=== PATIENT | female | born 1960 | race Caucasian/White ===

== ENCOUNTER 2022-11-05 17:47 | Inpatient (IN) | payer OTHER ==
[2022-11-05] MEDS ORDERED: IPRATROPIUM 0.5 MG/2.5 ML NEBU INHALATION STA (18:27)
[2022-11-05] MEDS ORDERED: ALBUTEROL NEBULIZED 2.5 MG/3 ML INHALATION STA (18:27)
[2022-11-05] MEDS ORDERED: DEXAMETHASONE SOD PHOSPHATE 10 MG/ML 1 ML VIAL IV STA (18:27)
--- NOTE | 2022-11-05 18:36 | ED ---
General Adult HPI - General Chief complaint: Shortness of Breath Stated complaint: sob, cough, stomach pain Time Seen by Provider: 11/05/22 17:53 Source: patient Mode of arrival: ambulatory Limitations: no limitations - History of Present Illness Initial comments: Dictation was produced using [employer] dictation software. please excuse any grammatical, word or spelling errors. Chief Complaint: 62-year-old female past nuchal history of COPD presents to the emergency room for shortness of breath History of Present Illness: 62-year-old female presents emergency department for shortness of breath she has past medical history of COPD. Patient has undergone respiratory failure causing cardiac arrest in the past. Patient with an urgent care yesterday and was given a Solu-Medrol shot and prescription for refills on her albuterol. She states that she called around town wasn't able to get a refill. Patient states is typical of her usual COPD. Denies any chest pain. Denies any fever. She has a cough. Cough is nonproductive. The ROS documented in this emergency department record has been reviewed and confirmed by me. Those systems with pertinent positive or negative responses have been documented in the HPI. All other systems are other negative and/or noncontributory. PHYSICAL EXAM: General Impression: Alert and oriented x3, not in acute distress HEENT: Normocephalic atraumatic, extra-ocular movements intact, pupils equal and reactive to light bilaterally, mucous membranes moist. Cardiovascular: Heart regular rate and rhythm Chest: Able to complete full sentences, diffuse wheezing bilaterally Abdomen: abdomen soft, non-tender, non-distended, no organomegaly Musculoskeletal: Pulses present and equal in all extremities, no peripheral edema Motor: no focal deficits noted Neurological: CN II-XII grossly intact, no focal motor or sensory deficits noted Skin: Intact with no visualized rashes Psych: Normal affect and mood ED course: 62-year-old male presents emergency department for shortness of breath. Past medical history of COPD. Nursing notes and chart review was performed Vital signs upon arrival are within acceptable limits. My EKG interpretation: Ventricular rate 86, sinus rhythm,. 159, QRS 97, QTC 42. No MN prolongation, no QTC prolongation, no ST or T-wave changes noted. Overall, this EKG is unremarkable Laboratory evaluation obtained. CBC unremarkable. Venous blood gases negative. Metabolic panel is negative. Cardiac labs are negative. Chest x-ray shows interstitial pattern. Patient reevaluated bedside states that she is still having trouble breathing. Considering patient's history of respiratory arrest she will be admitted to observation for further care and pulmonology consultation. Case discussed with Dr. Otto. Was pt. sent in by a medical professional or institution (, [facility], MARGARINE CHURN OPERATOR, urgent care, hospital, or half-way...) When possible be specific @ -No Did you speak to anyone other than the patient for history (EMS, parent, family, police, friend...)? What history was obtained from this source @ -No Did you review nursing and triage notes (agree or disagree)? Why? @ -I reviewed and agree with nursing and triage notes Were old charts reviewed (outside hosp., previous admission, EMS record, old EKG, old radiological studies, urgent care reports/EKG's, half-way records)? Report findings @ -No old charts were reviewed Differential Diagnosis (chest pain, altered mental status, abdominal pain women, abdominal pain men, vaginal bleeding, weakness, fever, dyspnea, syncope, headache, dizziness, GI bleed, back pain, seizure, CVA, palpatations, mental health)? @ -not applicable EKG interpreted by me (3pts min.). @ -As above X-rays interpreted by me (1pt min.). @ -As above CT interpreted by me (1pt min.). @ -None done U/S interpreted by me (1pt. min.). @ -None done What testing was considered but not performed or refused? (CT, X-rays, U/S, labs)? Why? @ -CT was considered but no indication What meds were considered but not given or refused? Why? @ -None Did you discuss the management of the patient with other professionals (professionals i.e. [facility] Elliott, MARGARINE CHURN OPERATOR, lab, RT, psych nurse, social service assistant, roll coverer, teacher, risk control officer, case briefer)? Give summary @ -See above Was smoking cessation discussed for >3mins.? @ -No Was critical care preformed (if so, how long)? @ -No Were there social determinants of health that impacted care today? How? (Homelessness, low income, unemployed, alcoholism, drug addiction, transportation, low edu. Level, literacy, decrease access to med. care, fpc, rehab)? @ -No establish care locally given patient moved recently from out of town Was there de-escalation of care discussed even if they declined (Discuss DNR or withdrawal of care, Hospice)? DNR status @ -No What co-morbidities impacted this encounter? (DM, HTN, Smoking, COPD, CAD, Cancer, CVA, ARF, Chemo, Hep., AIDS, mental health diagnosis, sleep apnea, morbid obesity)? @ -None Was patient admitted / discharged? Hospital course, mention meds given and route, prescriptions, significant lab abnormalities, going to OR and other pertinent info. @ -See above Undiagnosed new problem with uncertain prognosis? @ -No Drug Therapy requiring intensive monitoring for toxicity (Heparin, Nitro, Insulin, Cardizem)? @ -No Were any procedures done? @ -No Diagnosis/symptom? @ -COPD exacerbation Acute, or Chronic, or Acute on Chronic? @ -Acute Uncomplicated (without systemic symptoms) or Complicated (systemic symptoms)? @ -default Side effects of treatment? @ -No Exacerbation, Progression, or Severe Exacerbation? @ -Exacerbation Poses a threat to life or bodily function? How? (Chest pain, [place], [place], pneumonia, PE, COPD, DKA, ARF, appy, cholecystitis, CVA, Diverticulitis, Homicidal, Suicidal, threat to staff... and all critical care pts) @ -Gas - Related Data Home Medications Medication Instructions Recorded Confirmed Albuterol Sulfate [Ventolin HFA] 2 puff INHALATION RT-QID PRN 11/05/22 11/05/22 Apixaban [Eliquis] 5 mg PO BID 11/05/22 11/05/22 Budesonide [Pulmicort] 0.5 mg INHALATION RT-BID 11/05/22 11/05/22 Doxycycline [Vibramycin] 100 mg PO BID 11/05/22 11/05/22 HYDROcodone/APAP 10-325MG [[place] 1 tab PO BID PRN 11/05/22 11/05/22 10-325] Ipratropium-Albuterol Nebulize 3 ml INHALATION RT-QID 11/05/22 11/05/22 [Duoneb 0.5 mg-3 mg/3 ml Soln] Ondansetron Odt [Zofran Odt] 8 mg PO Q8HR PRN 11/05/22 11/05/22 Pantoprazole [Protonix] 40 mg PO DAILY 11/05/22 11/05/22 predniSONE 50 mg PO DAILY 11/05/22 11/05/22 Allergies Allergy/AdvReac Type Severity Reaction Status Date / Time ciprofloxacin [From Cipro] Allergy Rash/Hives Verified 11/05/22 20:54 Iodinated Contrast Media Allergy Anaphylaxis Verified 11/05/22 20:54 Penicillins Allergy Unknown Verified 11/05/22 20:54 Childhood prochlorperazine AdvReac Confusion Verified 11/05/22 20:54 [From Compazine] Review of Systems ROS Statement: Those systems with pertinent positive or pertinent negative responses have been documented in the HPI. ROS Other: All systems not noted in ROS Statement are negative. Past Medical History Past Medical History: COPD, Hypertension, Myocardial Infarction (ME), R espiratory Disorder History of Any Multi-Drug Resistant Organisms: None Reported Past Surgical History: Adenoidectomy, Appendectomy, Cholecystectomy, Hernia Repair, Tonsillectomy Additional Past Surgical History / Comment(s): colonoscopy, perferated colon in 2010 pt was in coma for 2.5 months. 15 abd surgeries Past Psychological History: No Psychological Hx Reported Smoking Status: Current some day smoker Past Alcohol Use History: None Reported Past Drug Use History: None Reported General Exam Limitations: no limitations Course Vital Signs 11/05/22 11/05/22 11/05/22 17:49 18:12 18:55 Temperature 97.5 F L Pulse Rate 105 H 90 80 Respiratory 20 24 Rate Blood Pressure 164/101 152/96 O2 Sat by Pulse 97 97 Oximetry 11/05/22 11/05/22 11/05/22 19:10 19:37 20:00 Temperature Pulse Rate 78 90 94 Respiratory 22 Rate Blood Pressure 124/89 O2 Sat by Pulse 95 Oximetry Medical Decision Making - Lab Data Result diagrams: 11/05/22 18:45 11/05/22 18:45 Lab Results 11/05/22 11/05/22 11/05/22 Range/Units 18:45 18:45 18:45 WBC 11.1 H (3.8-10.6) k/uL RBC 4.21 (3.80-5.40) m/uL Hgb 13.9 (11.4-16.0) gm/dL Hct 41.2 (34.0-46.0) % MCV 97.7 (80.0-100.0) fL MCH 33.1 (25.0-35.0) pg MCHC 33.9 (31.0-37.0) g/dL RDW 13.8 (11.5-15.5) % Plt Count 209 (150-450) k/uL MPV 7.9 Neutrophils % 76 % Lymphocytes % 16 % Monocytes % 5 % Eosinophils % 0 % Basophils % 1 % Neutrophils # 8.5 H (1.3-7.7) k/uL Lymphocytes # 1.8 (1.0-4.8) k/uL Monocytes # 0.6 (0-1.0) k/uL Eosinophils # 0.0 (0-0.7) k/uL Basophils # 0.1 (0-0.2) k/uL VBG pH 7.36 (7.31-7.41) VBG pCO2 46 (37-51) mmHg VBG HCO3 25 (24-28) mmol/L Sodium 138 (137-145) mmol/L Potassium 3.9 (3.5-5.1) mmol/L Chloride 106 (98-107) mmol/L Carbon Dioxide 27 (22-30) mmol/L Anion Gap 5 mmol/L BUN 14 (7-17) mg/dL Creatinine 0.79 (0.52-1.04) mg/dL Est GFR (CKD-EPI)AfAm >90 (>60 ml/min/1.73 sqM) Est GFR (CKD-EPI)NonAf 81 (>60 ml/min/1.73 sqM) Glucose 85 (74-99) mg/dL Calcium 9.4 (8.4-10.2) mg/dL Troponin I (0.000-0.034) ng/mL NT-Pro-B Natriuret Pep pg/mL 11/05/22 11/05/22 Range/Units 18:45 18:45 WBC (3.8-10.6) k/uL RBC (3.80-5.40) m/uL Hgb (11.4-16.0) gm/dL Hct (34.0-46.0) % MCV (80.0-100.0) fL MCH (25.0-35.0) pg MCHC (31.0-37.0) g/dL RDW (11.5-15.5) % Plt Count (150-450) k/uL MPV Neutrophils % % Lymphocytes % % Monocytes % % Eosinophils % % Basophils % % Neutrophils # (1.3-7.7) k/uL Lymphocytes # (1.0-4.8) k/uL Monocytes # (0-1.0) k/uL Eosinophils # (0-0.7) k/uL Basophils # (0-0.2) k/uL VBG pH (7.31-7.41) VBG pCO2 (37-51) mmHg VBG HCO3 (24-28) mmol/L Sodium (137-145) mmol/L Potassium (3.5-5.1) mmol/L Chloride (98-107) mmol/L Carbon Dioxide (22-30) mmol/L Anion Gap mmol/L BUN (7-17) mg/dL Creatinine (0.52-1.04) mg/dL Est GFR (CKD-EPI)AfAm (>60 ml/min/1.73 sqM) Est GFR (CKD-EPI)NonAf (>60 ml/min/1.73 sqM) Glucose (74-99) mg/dL Calcium (8.4-10.2) mg/dL Troponin I <0.012 (0.000-0.034) ng/mL NT-Pro-B Natriuret Pep 285 pg/mL Disposition Clinical Impression: COPD exacerbation Disposition: ADMITTED IP TO THIS HOSP Condition: Fair Referrals: Nonstaff,Physician [Primary Care Provider] - 1-2 days Decision Time: 21:00
[2022-11-05 20:01] LABS: Basophils # (A) 0.1 k/uL (0-0.2); Basophils % (A) 1 %; Eosinophils % (A) 0 %; HCT 41.2 % (34.0-46.0); HGB 13.9 gm/dL (11.4-16.0); Lymphocytes # (A) 1.8 k/uL (1.0-4.8); Lymphocytes % (A) 16 %; MCH 33.1 pg (25.0-35.0); MCHC 33.9 g/dL (31.0-37.0); MCV 97.7 fL (80.0-100.0); Mean Platelet Volume 7.9; Monocytes # (A) 0.6 k/uL (0-1.0); Monocytes % (A) 5 %; Neutrophils # (A) 8.5 k/uL (1.3-7.7); Neutrophils % (A) 76 %; Platelet Count 209 k/uL (150-450); RBC 4.21 m/uL (3.80-5.40); RDW 13.8 % (11.5-15.5); VBG PH 7.36 (7.31-7.41); WBC 11.1 k/uL (3.8-10.6)
[2022-11-05] MEDS ORDERED: HYDROcodone/APAP 10-325MG 1 EACH TAB PO ONE (20:13)
[2022-11-05] MEDS ORDERED: MORPHINE SULFATE 4 MG/ML SYRINGE IV STA (20:14)
[2022-11-05 20:15] LABS: African American GFR (CKD) >90 (>60 ml/min/1.73 sqM); Anion Gap 5 mmol/L; Blood Urea Nitrogen 14 mg/dL (7-17); Calcium 9.4 mg/dL (8.4-10.2); Carbon Dioxide 27 mmol/L (22-30); Chloride 106 mmol/L (98-107); Glucose 85 mg/dL (74-99); Non-African American GFR(CKD) 81 (>60 ml/min/1.73 sqM); Potassium 3.9 mmol/L (3.5-5.1); Sodium 138 mmol/L (137-145)
--- NOTE | 2022-11-05 20:40 | XR ---
EXAMINATION: XR chest 2V: 11/05/2022 8:09 PM CLINICAL INDICATION: copd exacerbation TECHNIQUE: Departmental protocol COMPARISON: None FINDINGS: There is a fine reticular pattern of increased attenuation which symmetrically mildly silhouettes the pulmonary vasculature. This can correlate with a clinical diagnosis of mild interstitial pulmonary e erin. The radiologic differential also includes chronic interstitial lung and infection. The pleural spaces are negative. The cardiac silhouette is not enlarged. The remainder of the mediastinal silhouette is unremarkable. The skeletal structures and soft tissues are negative for acute findings. IMPRESSION: Mild interstitial pattern.
[2022-11-05] MEDS ORDERED: NALOXONE 0.4 MG/ML 1 ML VIAL IVP PRN (20:55)
[2022-11-05] MEDS ORDERED: ALPRAZolam 0.5 MG TAB PO PRN (21:42)
[2022-11-05] MEDS ORDERED: ONDANSETRON ODT 8 MG TAB.RAPDIS PO PRN (21:42)
[2022-11-05] MEDS ORDERED: ALBUTEROL NEBULIZED 2.5 MG/3 ML INHALATION PRN (21:42)
[2022-11-05] MEDS: APIXABAN 5 MG TAB PO SCH (22:43)
[2022-11-05] MEDS: HYDROcodone/APAP 10-325MG 1 EACH TAB PO PRN (22:43)
[2022-11-06] MEDS: PANTOPRAZOLE 40 MG TABLET PO SCH (06:26)
[2022-11-06] MEDS ORDERED: BUDESONIDE 0.5 MG/2 ML NEBU INHALATION SCH (08:00)
[2022-11-06] MEDS ORDERED: IPRATROPIUM-ALBUTEROL 3 ML NEB INHALATION SCH (08:00)
[2022-11-06] MEDS: APIXABAN 5 MG TAB PO SCH ×2 (08:26→21:13)
[2022-11-06] MEDS: DOXYCYCLINE 100 MG CAP PO SCH ×2 (08:26→21:13)
[2022-11-06] MEDS: HYDROcodone/APAP 10-325MG 1 EACH TAB PO PRN ×2 (08:35→18:07)
[2022-11-06] MEDS ORDERED: predniSONE 20 MG TAB PO SCH (09:00)
[2022-11-06] MEDS: IPRATROPIUM-ALBUTEROL 3 ML NEB INHALATION SCH ×4 (11:38→23:55)
[2022-11-06] MEDS: guaiFENesin 600 MG TABLET.ER PO SCH ×3 (12:18→21:13)
[2022-11-06] MEDS: methylPREDNISolone SOD SUCCI 125 MG/2 ML VIAL IV SCH ×2 (12:18→18:08)
--- NOTE | 2022-11-06 14:41 | P.CNPUL ---
History of Present Illness Consult date: 11/06/22 Requesting physician: Hernandez Otto Reason for consult: dyspnea, cough, COPD, hypoxemia Chief complaint: Shortness of breath. History of present illness: Pulmonary consult dated 11/06/2022. 62-year-old female was seen in the emergency department on November 05, complaining of shortness of breath, and cough. The patient apparently has history of COPD, based on many many years of tobacco use. Also, in the past, because of her respiratory issues, she has had a cardiac arrest twice, most rece nt time, and January 2022. Currently, she is on 2 L. No IV fluids. She's been smoking for 50 years. She does continue to smoke. 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 She does not see anybody currently. She was admitted with a diagnosis of COPD exacerbation, after seeing the ER physician. White count 11.1, with a normal hemoglobin, hematocrit, and platelet count. Venous blood gases showed a pCO2 of 46, and a pH is 7.36. Chemistry was completely normal including troponin, and N-terminal proBNP. The chest x-ray in my opinion was normal. The radiologist suggested a mild interstitial pattern Review of Systems REVIEW OF SYSTEMS: CONSTITUTIONAL: [Negative.] NEUROLOGIC: [ Negative.] HEENT: [ Negative.] CARDIAC: [Negative.] PULMONARY: Shortness of breath, cough, chest congestion. GI: [Negative.] : [Negative.] RHEUMATOLOGIC: [ Negative.] IMMUNOLOGIC: [ Negative.] ENDOCRINE: [Negative. ] DERMATOLOGIC: [Negative.] Past Medical History Past Medical History: COPD, Hypertension, Respiratory Disorder Additional Past Medical History / Comment(s): cardiac arrest january 2022, "stopped breathing" and on a ventilator in 2020 History of Any Multi-Drug Resistant Organisms: MRSA Date of last positivie culture/infection: 2010 MDRO Source:: abdomen Past Surgical History: Adenoidectomy, Appendectomy, Cholecystectomy, Tonsillectomy Additional Past Surgical History / Comment(s): colonoscopy, perferated colon in 2010 pt was in coma for 2.5 months. 15 abd surgeries Past Psychological History: No Psychological Hx Reported Smoking Status: Former smoker Past Alcohol Use History: None Reported Past Drug Use History: None Reported Medications and Allergies Home Medications Medication Instructions Recorded Confirmed Type ALPRAZolam [Xanax] 0.5 mg PO TID PRN 11/05/22 11/05/22 History Albuterol Sulfate [Ventolin HFA] 2 puff INHALATION RT-QID PRN 11/05/22 11/05/22 History Apixaban [Eliquis] 5 mg PO BID 11/05/22 11/05/22 History Budesonide [Pulmicort] 0.5 mg INHALATION RT-BID 11/05/22 11/05/22 History Doxycycline [Vibramycin] 100 mg PO BID 11/05/22 11/05/22 History HYDROcodone/APAP 10-325MG [[place] 1 tab PO BID PRN 11/05/22 11/05/22 History 10-325] Ipratropium-Albuterol Nebulize 3 ml INHALATION RT-QID 11/05/22 11/05/22 History [Duoneb 0.5 mg-3 mg/3 ml Soln] Ondansetron Odt [Zofran Odt] 8 mg PO Q8HR PRN 11/05/22 11/05/22 History Pantoprazole [Protonix] 40 mg PO DAILY 11/05/22 11/05/22 History predniSONE 50 mg PO DAILY 11/05/22 11/05/22 History Allergies Allergy/AdvReac Type Severity Reaction Status Date / Time ampicillin Allergy Severe Rash/Hives Verified 11/05/22 21:19 (in mouth), throat swelling Iodinated Contrast Media Allergy Severe Anaphylaxis Verified 11/05/22 21:19 Penicillins Allergy Severe Rash/Hives Verified 11/05/22 21:19 ciprofloxacin [From Cipro] Allergy Rash/Hives Verified 11/05/22 21:19 metoclopramide [From Reglan] AdvReac Confusion, Verified 11/05/22 21:19 Agitation, muscle pain/stiffness prochlorperazine AdvReac Confusion, Verified 11/05/22 21:19 [From Compazine] Agitation, muscle pain/stiffness Physical Exam Osteopathic Statement: *. No significant issues noted on an osteopathic structural exam other than those noted in the History and Physical/Consult. Vitals: Vital Signs Temp Pulse Pulse Resp BP BP Pulse Ox 11/06/22 14:30 97.9 F 84 18 120/73 95 11/06/22 11:50 76 11/06/22 11:39 74 11/06/22 07:43 74 11/06/22 07:25 72 11/06/22 07:24 95 11/06/22 07:00 97.6 F 74 18 112/71 97 11/06/22 05:10 78 11/06/22 05:03 74 11/06/22 01:17 97.6 F 74 16 104/65 95 11/05/22 22:09 98.0 F 89 18 142/77 95 11/05/22 21:37 79 18 117/68 95 11/05/22 20:00 94 22 124/89 95 11/05/22 19:37 90 11/05/22 19:10 78 11/05/22 18:55 80 11/05/22 18:12 90 24 152/96 97 11/05/22 17:49 97.5 F L 105 H 20 164/101 97 Intake and Output 11/05/22 11/06/22 11/06/22 22:59 06:59 14:59 Intake Total 354 Balance 354 Intake: Oral 354 Other: Voiding Method Toilet # Voids 3 Weight 68.039 kg No acute distress, oriented 3. No respiratory distress. No use of accessory muscles or conversational dyspnea. The patient's on 2 L of oxygen. HEENT examination is grossly unremarkable. Neck supple. Full range of motion. No adenopathy thyromegaly or neck vein distention. Cardiovascular examination reveals regular rhythm rate. S1-S2 normal. No S3 or S4. No discernible murmur noted. Heart rate 84 bpm. Lungs reveal coarse bilateral inspiratory and expiratory rhonchi, and expiratory wheezes, and bilateral crackles. Breath sounds equal bilaterally. Abdomen soft bowel sounds are heard. No masses or tenderness. Extremities are intact. No cyanosis clubbing or edema. Skin is without rash or lesion. Neurologic examination is brief but nonfocal. Results - Laboratory Findings CBC and BMP: 11/05/22 18:45 11/05/22 18:45 Abnormal lab findings: Abnormal Labs 11/05/22 18:45 WBC 11.1 H Neutrophils # 8.5 H - Diagnostic Findings Chest x-ray: image reviewed Assessment and Plan Assessment: Acute exacerbation of COPD, without obvious infection. 52 years of tobacco use, and ongoing tobacco use. History of hypertension. History of myocardial infarction. History of cardiac arrest 2. Previous history of perforated colon, 2010. Previous history of multiple abdominal procedures. Plan: Plan dated 11/06/2022. The patient is on updrafts with albuterol sulfate and ipratropium bromide, Solu- Medrol, and both formoterol. The desonide. Patient is also on doxycycline. The patient appears not to be in much distress. A pro-calcitonin level was ordered. The patient may not need antibiotics. Additional recommendations and suggestions are forthcoming. We will continue to follow and make recommendations along the way. Prognosis is certainly guarded, given her 2 previous episodes of cardiac arrest. Time with Patient: Greater than 30
[2022-11-06] MEDS: NICOTINE 7MG/24HR PATCH TRANSDERM SCH (18:08)
--- NOTE | 2022-11-06 18:34 | P.HPIM ---
History of Present Illness H&P Date: 11/06/22 Chief Complaint: Short of breath This is a pleasant 62-year-old patient with currently no family doctor. Has a known history of COPD, hypertension, and a perforated bowel for by multiple surgeries, respiratory arrest was ventilator on January 2022. Patient has been chronically short of breath. Recently is progressed to get worse. Now bringing up some sputum. Cough. No fever no chills. Wheezing. Decreased appetite and weight loss tired rundown. Review of systems: GEN.: Tired weight loss decreased appetite EYES: None HEENT: None NECK: None RESPIRATORY: As above CARDIOVASCULAR: None GASTROINTESTINAL: None GENITOURINARY: None MUSCULOSKELETAL: None LYMPHATICS: None HEMATOLOGICAL: None PSYCHIATRY: None NEUROLOGICAL: None Past medical history to include: COPD, hypertension, respiratory arrest with intubation January 2022, multiple bowel surgeries in 2010 following perforated: Social history: . Does smoke a few cigarettes here and there. Pelvic about less than half a pack a day for 50 years stopped about 10 years ago. Physical examination: VITAL SIGNS: 97.5, 105, 20, 152/96, 97% room air upon presentation GENERAL: BMI 22.8, reclining in bed short of breath. EYES: Pupils equal. Conjunctiva normal. HEENT: External appearance of nose and ears normal, oral cavity grossly normal. NECK: JVD not raised; masses not palpable. HEART: First and second heart sounds are normal; no edema. LUNGS: Respiratory rate increased, decreased breaths breath sounds prolonged expiration coarse breath sounds. ABDOMEN: Soft, nontender, liver spleen not palpable, no masses palpable. PSYCH: Alert and oriented x3; mood and affect normal. MUSCULOSKELETAL:No Clubbing/cyanosis;muscles-grossly intact. OA NEUROLOGICAL: Cranial nerves grossly intact; no facial asymmetry, power and sensation grossly intact. LYMPHATICS: No lymph nodes palpable in the axilla and neck INVESTIGATIONS, reviewed in the clinical context: White count 11.1 hemoglobin 13.9 platelets 209 potassium 3.9 creatinine 0.79 Troponin I less than 0.012 proBNP 25 procalcitonin 0.04 EKG tracing personally reviewed by me-normal sinus rhythm Chest x-ray film personally reviewed by me-hyperinflated Assessment and plan: -Acute severe COPD exacerbation in a current smoker DuoNeb. IV Solu-Medrol. Nebulized Perforomist and Pulmicort. Pulmonary consulted -Acute tracheobronchitis Doxycycline -Chronic nicotine dependence cigarette smoker Nicotine patch -GERD Protonix -Chronic history of DVT and PE Eliquis -Anxiety not otherwise specified Xanax when necessary Past Medical History Past Medical History: COPD, Hypertension, Respiratory Disorder Additional Past Medical History / Comment(s): cardiac arrest january 2022, "stopped breathing" and on a ventilator in 2020 History of Any Multi-Drug Resistant Organisms: MRSA Date of last positivie culture/infection: 2010 MDRO Source:: abdomen Past Surgical History: Adenoidectomy, Appendectomy, Cholecystectomy, Tonsillectomy Additional Past Surgical History / Comment(s): colonoscopy, perferated colon in 2010 pt was in coma for 2.5 months. 15 abd surgeries Past Psychological History: No Psychological Hx Reported Smoking Status: Former smoker Past Alcohol Use History: None Reported Past Drug Use History: None Reported Medications and Allergies Home Medications Medication Instructions Recorded Confirmed Type ALPRAZolam [Xanax] 0.5 mg PO TID PRN 11/05/22 11/05/22 History Albuterol Sulfate [Ventolin HFA] 2 puff INHALATION RT-QID PRN 11/05/22 11/05/22 History Apixaban [Eliquis] 5 mg PO BID 11/05/22 11/05/22 History Budesonide [Pulmicort] 0.5 mg INHALATION RT-BID 11/05/22 11/05/22 History Doxycycline [Vibramycin] 100 mg PO BID 11/05/22 11/05/22 History HYDROcodone/APAP 10-325MG [[place] 1 tab PO BID PRN 11/05/22 11/05/22 History 10-325] Ipratropium-Albuterol Nebulize 3 ml INHALATION RT-QID 11/05/22 11/05/22 History [Duoneb 0.5 mg-3 mg/3 ml Soln] Ondansetron Odt [Zofran Odt] 8 mg PO Q8HR PRN 11/05/22 11/05/22 History Pantoprazole [Protonix] 40 mg PO DAILY 11/05/22 11/05/22 History predniSONE 50 mg PO DAILY 11/05/22 11/05/22 History Allergies Allergy/AdvReac Type Severity Reaction Status Date / Time ampicillin Allergy Severe Rash/Hives Verified 11/05/22 21:19 (in mouth), throat swelling Iodinated Contrast Media Allergy Severe Anaphylaxis Verified 11/05/22 21:19 Penicillins Allergy Severe Rash/Hives Verified 11/05/22 21:19 ciprofloxacin [From Cipro] Allergy Rash/Hives Verified 11/05/22 21:19 metoclopramide [From Reglan] AdvReac Confusion, Verified 11/05/22 21:19 Agitation, muscle pain/stiffness prochlorperazine AdvReac Confusion, Verified 11/05/22 21:19 [From Compazine] Agitation, muscle pain/stiffness Physical Exam Vitals: Vital Signs Temp Pulse Pulse Resp BP BP Pulse Ox 11/06/22 07:43 74 11/06/22 07:25 72 11/06/22 07:24 95 11/06/22 07:00 97.6 F 74 18 112/71 97 11/06/22 05:10 78 11/06/22 05:03 74 11/06/22 01:17 97.6 F 74 16 104/65 95 11/05/22 22:09 98.0 F 89 18 142/77 95 11/05/22 21:37 79 18 117/68 95 11/05/22 20:00 94 22 124/89 95 11/05/22 19:37 90 11/05/22 19:10 78 11/05/22 18:55 80 11/05/22 18:12 90 24 152/96 97 11/05/22 17:49 97.5 F L 105 H 20 164/101 97 Intake and Output 11/05/22 11/06/22 11/06/22 22:59 06:59 14:59 Other: Voiding Method Toilet # Voids 3 Weight 68.039 kg Results CBC & Chem 7: 11/05/22 18:45 11/05/22 18:45 Labs: Abnormal Lab Results - Last 24 Hours (Table) 11/05/22 Range/Units 18:45 WBC 11.1 H (3.8-10.6) k/uL Neutrophils # 8.5 H (1.3-7.7) k/uL
[2022-11-06] MEDS: FORMOTEROL FUMARATE 20 MCG/2 ML NEBU INHALATION SCH (20:11)
[2022-11-06] MEDS: BUDESONIDE 1 MG/2 ML NEBU INHALATION SCH (20:11)
[2022-11-06] MEDS: HYDROmorphone 0.5 MG/0.5 ML SYRINGE IVP PRN (21:29)
[2022-11-07] MEDS: methylPREDNISolone SOD SUCCI 125 MG/2 ML VIAL IV SCH ×4 (00:53→17:48)
[2022-11-07] MEDS: IPRATROPIUM-ALBUTEROL 3 ML NEB INHALATION SCH ×5 (04:00→20:02)
[2022-11-07] MEDS: HYDROcodone/APAP 10-325MG 1 EACH TAB PO PRN ×3 (05:45→20:36)
[2022-11-07] MEDS: PANTOPRAZOLE 40 MG TABLET PO SCH (05:46)
[2022-11-07] MEDS: BUDESONIDE 1 MG/2 ML NEBU INHALATION SCH ×2 (08:18→20:02)
[2022-11-07] MEDS: FORMOTEROL FUMARATE 20 MCG/2 ML NEBU INHALATION SCH ×2 (08:18→20:02)
[2022-11-07] MEDS: DOXYCYCLINE 100 MG CAP PO SCH ×2 (09:08→20:35)
[2022-11-07] MEDS: APIXABAN 5 MG TAB PO SCH ×2 (09:08→20:35)
[2022-11-07] MEDS: guaiFENesin 600 MG TABLET.ER PO SCH ×4 (09:08→20:01)
[2022-11-07] MEDS: NICOTINE 7MG/24HR PATCH TRANSDERM SCH (09:09)
--- NOTE | 2022-11-07 11:58 | P.PN ---
Subjective Progress Note Date: 11/07/22 Principal diagnosis: Shortness of breath. Pulmonary consult dated 11/06/2022. 62-year-old female was seen in the emergency department on November 05, complaining of shortness of breath, and cough. The patient apparently has history of COPD, based on many many years of tobacco use. Also, in the past, because of her respiratory issues, she has had a cardiac arrest twice, most recent time, and January 2022. Currently, she is on 2 L. No IV fluids. She's been smoking for 50 years. She does continue to smoke. 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 She does not see anybody currently. She was admitted with a diagnosis of COPD exacerbation, after seeing the ER physician. White count 11.1, with a normal hemoglobin, hematocrit, and platelet count. Venous blood gases showed a pCO2 of 46, and a pH is 7.36. Chemistry was completely normal including troponin, and N-terminal proBNP. The chest x-ray in my opinion was normal. The radiologist suggested a mild interstitial pattern Progress note dated 11/07/2022. 62-year-old female seen yesterday in consultation. She was admitted with a diagnosis of COPD exacerbation secondary to many years of tobacco use/abuse. Currently, she is on 2 L of oxygen. She's not receiving any IV fluids. She is feeling much better today. No new labs today as yet. No x-ray as yet. She denies any chest pain or chest discomfort. She denies any nausea, vomiting, diarrhea, or abdominal pain. She also denies any genitourinary complaints. Objective - Vital Signs Vital signs: Vital Signs Temp 97.7 F 11/07/22 07:00 Pulse 104 H 11/07/22 11:41 Resp 16 11/07/22 07:00 BP 111/74 11/07/22 07:00 Pulse Ox 95 11/07/22 07:00 FiO2 Intake & Output 11/06/22 11/07/22 11/07/22 18:59 06:59 18:59 Intake Total 652 118 Balance 652 118 Intake: Oral 652 118 Other: Voiding Method Toilet # Voids 2 3 # Bowel Movements 1 - Exam No acute distress, oriented 3. No respiratory distress. No use of accessory muscles or conversational dyspnea. The patient's on 2 L of oxygen. HEENT examination is grossly unremarkable. Neck supple. Full range of motion. No adenopathy thyromegaly or neck vein distention. Cardiovascular examination reveals regular rhythm rate. S1-S2 normal. No S3 or S4. No discernible murmur noted. Heart rate 92 bpm. Lungs reveal coarse bilateral inspiratory and expiratory rhonchi, and expiratory wheezes, and bilateral crackles. Breath sounds equal bilaterally. Abdomen soft bowel sounds are heard. No masses or tenderness. Extremities are intact. No cyanosis clubbing or edema. Skin is without rash or lesion. Neurologic examination is brief but nonfocal. - Labs CBC & Chem 7: 11/05/22 18:45 11/05/22 18:45 Assessment and Plan Assessment: Acute exacerbation of COPD, without obvious infection. 52 years of tobacco use/ongoing tobacco use. History of hypertension. History of myocardial infarction. History of cardiac arrest 2. Previous history of perforated colon, 2010. Previous history of multiple abdominal procedures. Plan: Plan dated 11/06/2022. The patient is on updrafts with albuterol sulfate and ipratropium bromide, Solu- Medrol, and both formoterol. The desonide. Patient is also on doxycycline. The patient appears not to be in much distress. A pro-calcitonin level was ordered. The patient may not need antibiotics. Additional recommendations and suggestions are forthcoming. We will continue to follow and make recommendations along the way. Prognosis is certainly guarded, given her 2 previous episodes of cardiac arrest. Plan dated 11/07/2022. On the pulmonary standpoint, the patient remains on budesonide, formoterol, doxycycline, albuterol sulfate, and ipratropium bromide, and Solu-Medrol. Clinically, the patient's doing much better. We will continue to follow the patient and make recommendations along the way. The patient still smokes cigarettes from time to time. She is counseled about the importance of smoking cessation. Time with Patient: Less than 30
--- NOTE | 2022-11-07 19:00 | P.PN ---
Progress Note - Text Progress Note Date: 11/07/22 Chief Complaint: Short of breath This is a pleasant 62-year-old patient with currently no family doctor. Has a known history of COPD, hypertension, and a perforated bowel for by multiple surgeries, respiratory arrest was ventilator on January 2022. Patient has been chronically short of breath. Recently is progressed to get worse. Now bringing up some sputum. Cough. No fever no chills. Wheezing. Decreased appetite and weight loss tired rundown. November 07: She did improvement. Short of breath. Cough-no phlegm. Some wheezing. Eating some. An initial set up in a chair. Bronchodilators, Solu- Medrol. Doxycycline. Has a chronic abdominal pain. Active Medications Hydrocodone Bitart/Acetaminophen (Hydrocodone/Apap 10-325mg 1 Each Tab) 1 each PO Q8H PRN PRN Reason: Pain Last Admin: 11/07/22 12:51 Dose: 1 each Albuterol/Ipratropium (Ipratropium-Albuterol 3 Ml Neb) 3 ml INHALATION RT-Q4H [facility] Last Admin: 11/07/22 15:51 Dose: 3 ml Alprazolam (Alprazolam 0.5 Mg Tab) 0.5 mg PO TID PRN PRN Reason: Anxiety Last Admin: 11/06/22 04:58 Dose: 0.5 mg Apixaban (Apixaban 5 Mg Tab) 5 mg PO BID [facility]; Protocol Last Admin: 11/07/22 09:08 Dose: 5 mg Budesonide (Budesonide 1 Mg/2 Ml Nebu) 1 mg INHALATION RT-BID [facility] Last Admin: 11/07/22 08:18 Dose: 1 mg Doxycycline Monohydrate (Doxycycline 100 Mg Cap) 100 mg PO BID [facility]; Protocol Stop: 11/14/22 23:00 Last Admin: 11/07/22 09:08 Dose: 100 mg Formoterol Fumarate (Formoterol Fumarate 20 Mcg/2 Ml Nebu) 20 mcg INHALATION RT-BID [facility] Last Admin: 11/07/22 08:18 Dose: 20 mcg Guaifenesin (Guaifenesin 600 Mg Tablet.Er) 600 mg PO QID [facility] Last Admin: 11/07/22 17:48 Dose: Not Given Hydromorphone HCl (Hydromorphone 0.5 Mg/0.5 Ml Syringe) 0.5 mg IVP Q6HR PRN PRN Reason: Pain Last Admin: 11/06/22 21:29 Dose: 0.5 mg Methylprednisolone Sodium Succinate (Methylprednisolone Sod Succi 125 Mg/2 Ml Vial) 60 mg IV Q6HR [facility] Last Admin: 11/07/22 17:48 Dose: 60 mg Naloxone HCl (Naloxone 0.4 Mg/Ml 1 Ml Vial) 0.2 mg IVP Q2M PRN PRN Reason: Opioid Reversal Nicotine (Nicotine 7mg/24hr Patch) 1 patch TRANSDERM DAILY [facility] Last Admin: 11/07/22 09:09 Dose: Not Given Ondansetron HCl (Ondansetron Odt 8 Mg Tab.Rapdis) 8 mg PO Q8HR PRN PRN Reason: Nausea Last Admin: 11/06/22 09:05 Dose: 8 mg Pantoprazole Sodium (Pantoprazole 40 Mg Tablet) 40 mg PO AC-BRKFST [facility] Last Admin: 11/07/22 05:46 Dose: 40 mg Past medical history to include: COPD, hypertension, respiratory arrest with intubation January 2022, multiple bowel surgeries in 2010 following perforated: Social history: . Does smoke a few cigarettes here and there. Pelvic about less than half a pack a day for 50 years stopped about 10 years ago. Physical examination: VITAL SIGNS: 37.8, 84, 22, 128% he 5, 94% room air GENERAL: , reclining in bed short of breath. EYES: Pupils equal. Conjunctiva normal. HEENT: External appearance of nose and ears normal, oral cavity grossly normal. NECK: JVD not raised; masses not palpable. HEART: First and second heart sounds are normal; no edema. LUNGS: Respiratory rate increased, decreased breaths breath sounds prolonged expiration coarse breath sounds. ABDOMEN: Soft, some tenderness, no guarding rigidity, liver spleen not palpable, no masses palpable. PSYCH: Alert and oriented x3; mood and affect anxious MUSCULOSKELETAL:No Clubbing/cyanosis;muscles-grossly intact. OA INVESTIGATIONS, reviewed in the clinical context: White count 11.1 hemoglobin 13.9 platelets 209 potassium 3.9 creatinine 0.79 Troponin I less than 0.012 proBNP 25 procalcitonin 0.04 EKG tracing personally reviewed by me-normal sinus rhythm Chest x-ray film personally reviewed by me-hyperinflated Assessment and plan: -Acute severe COPD exacerbation in a current smoker: Slow to respond DuoNeb. IV Solu-Medrol 60 mg every 6. Nebulized Perforomist and Pulmicort. -Acute tracheobronchitis Doxycycline -Chronic nicotine dependence cigarette smoker Nicotine patch -Chronic abdominal pain present multiple surgeries. Juliet capellan. Patient does follow up with surgeon at [facility]. -GERD Protonix -Chronic history of DVT and PE Eliquis -Anxiety not otherwise specified Xanax when necessary
[2022-11-07] MEDS: HYDROmorphone 0.5 MG/0.5 ML SYRINGE IVP PRN (22:23)
[2022-11-08] MEDS: methylPREDNISolone SOD SUCCI 125 MG/2 ML VIAL IV SCH ×5 (00:30→23:19)
[2022-11-08] MEDS: IPRATROPIUM-ALBUTEROL 3 ML NEB INHALATION SCH ×7 (03:37→23:24)
[2022-11-08] MEDS: HYDROcodone/APAP 10-325MG 1 EACH TAB PO PRN ×3 (05:21→22:11)
[2022-11-08] MEDS: PANTOPRAZOLE 40 MG TABLET PO SCH (05:21)
[2022-11-08] MEDS: FORMOTEROL FUMARATE 20 MCG/2 ML NEBU INHALATION SCH ×2 (08:01→19:48)
[2022-11-08] MEDS: BUDESONIDE 1 MG/2 ML NEBU INHALATION SCH ×2 (08:01→19:48)
[2022-11-08] MEDS: NICOTINE 7MG/24HR PATCH TRANSDERM SCH (08:11)
[2022-11-08] MEDS: guaiFENesin 600 MG TABLET.ER PO SCH ×4 (08:11→20:47)
[2022-11-08] MEDS: DOXYCYCLINE 100 MG CAP PO SCH ×2 (08:14→20:47)
[2022-11-08] MEDS: APIXABAN 5 MG TAB PO SCH ×2 (08:14→20:47)
[2022-11-08] MEDS: HYDROmorphone 0.5 MG/0.5 ML SYRINGE IVP PRN ×2 (08:14→16:44)
--- NOTE | 2022-11-08 10:48 | P.PN ---
Subjective Progress Note Date: 11/08/22 Principal diagnosis: Shortness of breath. Pulmonary consult dated 11/06/2022. 62-year-old female was seen in the emergency department on November 05, complaining of shortness of breath, and cough. The patient apparently has history of COPD, based on many many years of tobacco use. Also, in the past, because of her respiratory issues, she has had a cardiac arrest twice, most recent time, and January 2022. Currently, she is on 2 L. No IV fluids. She's been smoking for 50 years. She does continue to smoke. 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 She does not see anybody currently. She was admitted with a diagnosis of COPD exacerbation, after seeing the ER physician. White count 11.1, with a normal hemoglobin, hematocrit, and platelet count. Venous blood gases showed a pCO2 of 46, and a pH is 7.36. Chemistry was completely normal including troponin, and N-terminal proBNP. The chest x-ray in my opinion was normal. The radiologist suggested a mild interstitial pattern Progress note dated 11/07/2022. 62-year-old female seen yesterday in consultation. She was admitted with a diagnosis of COPD exacerbation secondary to many years of tobacco use/abuse. Currently, she is on 2 L of oxygen. She's not receiving any IV fluids. She is feeling much better today. No new labs today as yet. No x-ray as yet. She denies any chest pain or chest discomfort. She denies any nausea, vomiting, diarrhea, or abdominal pain. She also denies any genitourinary complaints. Progress note dated 11/08/2022. 62-year-old female seen again in room 637. The patient was admitted with a diagnosis of COPD exacerbation. Currently, the patient's getting a breathing treatment. She's not receiving any IV fluids. She is on 2 L of oxygen. No new labs today. Objective - Vital Signs Vital signs: Vital Signs Temp 97.6 F 11/08/22 07:00 Pulse 96 11/08/22 08:28 Resp 16 11/08/22 07:00 BP 138/79 11/08/22 07:00 Pulse Ox 95 11/08/22 08:03 FiO2 21 11/07/22 20:02 Intake & Output 0111/08/22 11/08/22 18:59 06:59 18:59 Intake Total 340 Balance 340 Intake: Oral 340 Other: Voiding Method Toilet Toilet # Voids 1 3 - Exam No acute distress, oriented 3. No respiratory distress. No use of accessory muscles or conversational dyspnea. The patient's on 2 L of oxygen. HEENT examination is grossly unremarkable. Neck supple. Full range of motion. No adenopathy thyromegaly or neck vein distention. Cardiovascular examination reveals regular rhythm rate. S1-S2 normal. No S3 or S4. No discernible murmur noted. Heart rate 96 bpm. Lungs reveal coarse bilateral inspiratory and expiratory rhonchi, and expiratory wheezes, and bilateral crackles. Breath sounds equal bilaterally. Abdomen soft bowel sounds are heard. No masses or tenderness. Extremities are intact. No cyanosis clubbing or edema. Skin is without rash or lesion. Neurologic examination is brief but nonfocal. - Labs CBC & Chem 7: 11/05/22 18:45 11/05/22 18:45 Assessment and Plan Assessment: Acute exacerbation of COPD, without obvious infection. 52 years of tobacco use/ongoing tobacco use. History of hypertension. History of myocardial infarction. History of cardiac arrest 2. Previous history of perforated colon, 2010. Previous history of multiple abdominal procedures. Plan: Plan dated 11/06/2022. The patient is on updrafts with albuterol sulfate and ipratropium bromide, Solu- Medrol, and both formoterol. The desonide. Patient is also on doxycycline. The patient appears not to be in much distress. A pro-calcitonin level was ordered. The patient may not need antibiotics. Additional recommendations and suggestions are forthcoming. We will continue to follow and make recommendations along the way. Prognosis is certainly guarded, given her 2 previous episodes of cardiac arrest. Plan dated 11/07/2022. On the pulmonary standpoint, the patient remains on budesonide, formoterol, doxycycline, albuterol sulfate, and ipratropium bromide, and Solu-Medrol. Clinically, the patient's doing much better. We will continue to follow the patient and make recommendations along the way. The patient still smokes cigarettes from time to time. She is counseled about the importance of smoking cessation. Plan dated 11/08/2022. The patient is not yet ready for discharge. She is quite bronchospastic. The patient continues on appropriate medications including updrafts, doxycycline, and Solu-Medrol. Additional recommendations and suggestions are forthcoming. We will continue to follow make recommendations along the way. The patient remains on 2 L of oxygen. Time with Patient: Less than 30
--- NOTE | 2022-11-08 22:34 | P.PN ---
Progress Note - Text Progress Note Date: 11/08/22 Chief Complaint: Short of breath This is a pleasant 62-year-old patient with currently no family doctor. Has a known history of COPD, hypertension, and a perforated bowel for by multiple surgeries, respiratory arrest was ventilator on January 2022. Patient has been chronically short of breath. Recently is progressed to get worse. Now bringing up some sputum. Cough. No fever no chills. Wheezing. Decreased appetite and weight loss tired rundown. November 07: She did improvement. Short of breath. Cough-no phlegm. Some wheezing. Eating some. An initial set up in a chair. Bronchodilators, Solu- Medrol. Doxycycline. Has a chronic abdominal pain. November 08: Remain short of breath wheezing. Cough with no sputum. Continue with bronchodilators I delivered drop. Increase activity. Oral intake fair. Active Medications Hydrocodone Bitart/Acetaminophen (Hydrocodone/Apap 10-325mg 1 Each Tab) 1 each PO Q8H PRN PRN Reason: Pain Last Admin: 11/08/22 22:11 Dose: 1 each Albuterol/Ipratropium (Ipratropium-Albuterol 3 Ml Neb) 3 ml INHALATION RT-Q4H [facility] Last Admin: 11/08/22 19:48 Dose: 3 ml Alprazolam (Alprazolam 0.5 Mg Tab) 0.5 mg PO TID PRN PRN Reason: Anxiety Last Admin: 11/06/22 04:58 Dose: 0.5 mg Apixaban (Apixaban 5 Mg Tab) 5 mg PO BID [facility]; Protocol Last Admin: 11/08/22 20:47 Dose: 5 mg Budesonide (Budesonide 1 Mg/2 Ml Nebu) 1 mg INHALATION RT-BID [facility] Last Admin: 11/08/22 19:48 Dose: 1 mg Doxycycline Monohydrate (Doxycycline 100 Mg Cap) 100 mg PO BID [facility]; Protocol Stop: 11/14/22 23:00 Last Admin: 11/08/22 20:47 Dose: 100 mg Formoterol Fumarate (Formoterol Fumarate 20 Mcg/2 Ml Nebu) 20 mcg INHALATION RT-BID [facility] Last Admin: 11/08/22 19:48 Dose: 20 mcg Guaifenesin (Guaifenesin 600 Mg Tablet.Er) 600 mg PO QID [facility] Last Admin: 01/22/23 20:47 Dose: Not Given Hydromorphone HCl (Hydromorphone 0.5 Mg/0.5 Ml Syringe) 0.5 mg IVP Q6HR PRN PRN Reason: Pain Last Admin: 11/08/22 16:44 Dose: 0.5 mg Methylprednisolone Sodium Succinate (Methylprednisolone Sod Succi 125 Mg/2 Ml Vi al) 60 mg IV Q6HR [facility] Last Admin: 11/08/22 16:43 Dose: 60 mg Naloxone HCl (Naloxone 0.4 Mg/Ml 1 Ml Vial) 0.2 mg IVP Q2M PRN PRN Reason: Opioid Reversal Nicotine (Nicotine 7mg/24hr Patch) 1 patch TRANSDERM DAILY [facility] Last Admin: 11/08/22 08:11 Dose: Not Given Ondansetron HCl (Ondansetron Odt 8 Mg Tab.Rapdis) 8 mg PO Q8HR PRN PRN Reason: Nausea Last Admin: 11/06/22 09:05 Dose: 8 mg Pantoprazole Sodium (Pantoprazole 40 Mg Tablet) 40 mg PO AC-BRKFST [facility] Last Admin: 11/08/22 05:21 Dose: 40 mg Past medical history to include: COPD, hypertension, respiratory arrest with intubation January 2022, multiple bowel surgeries in 2010 following perforated: Social history: . Does smoke a few cigarettes here and there. Pelvic about less than half a pack a day for 50 years stopped about 10 years ago. Physical examination: VITAL SIGNS: He 7.4, 108, 20, 1 46 x 88, 94% room air GENERAL: , reclining in bed , short of breath. EYES: Pupils equal. Conjunctiva normal. HEENT: External appearance of nose and ears normal, oral cavity grossly normal. NECK: JVD not raised; masses not palpable. HEART: First and second heart sounds are normal; no edema. LUNGS: Respiratory rate increased, decreased breaths breath sounds, wheezing coarse breath sounds. ABDOMEN: Soft, some tenderness, no guarding rigidity, liver spleen not palpable, no masses palpable. PSYCH: Alert and oriented x3; mood and affect anxious MUSCULOSKELETAL:No Clubbing/cyanosis;muscles-grossly intact. OA INVESTIGATIONS, reviewed in the clinical context: White count 11.1 hemoglobin 13.9 platelets 209 potassium 3.9 creatinine 0.79 Troponin I less than 0.012 proBNP 25 procalcitonin 0.04 EKG tracing personally reviewed by me-normal sinus rhythm Chest x-ray film personally reviewed by me-hyperinflated Assessment and plan: -Acute severe COPD exacerbation in a current smoker: Slow to respond DuoNeb. IV Solu-Medrol 60 mg every 6. Nebulized Perforomist and Pulmicort. -Acute tracheobronchitis Doxycycline -Chronic nicotine dependence cigarette smoker Nicotine patch -Chronic abdominal pain present multiple surgeries. Juliet capellan. Patient does follow up with surgeon at [facility]. -GERD Protonix -Chronic history of DVT and PE Eliquis -Anxiety not otherwise specified Xanax when necessary Continue bronchodilators and Solu-Medrol. Increase activity. Discussed with patient. Incentive spirometry.
[2022-11-09] MEDS: IPRATROPIUM-ALBUTEROL 3 ML NEB INHALATION SCH ×6 (03:13→23:37)
[2022-11-09] MEDS: HYDROmorphone 0.5 MG/0.5 ML SYRINGE IVP PRN ×4 (03:37→21:19)
[2022-11-09] MEDS: PANTOPRAZOLE 40 MG TABLET PO SCH (06:30)
[2022-11-09] MEDS: methylPREDNISolone SOD SUCCI 125 MG/2 ML VIAL IV SCH ×3 (06:30→17:47)
[2022-11-09] MEDS: BUDESONIDE 1 MG/2 ML NEBU INHALATION SCH ×2 (07:24→19:57)
[2022-11-09] MEDS: FORMOTEROL FUMARATE 20 MCG/2 ML NEBU INHALATION SCH ×2 (07:24→19:57)
[2022-11-09] MEDS: NICOTINE 7MG/24HR PATCH TRANSDERM SCH (09:31)
[2022-11-09] MEDS: guaiFENesin 600 MG TABLET.ER PO SCH ×4 (09:31→21:04)
[2022-11-09] MEDS: APIXABAN 5 MG TAB PO SCH ×2 (09:34→21:04)
[2022-11-09] MEDS: DOXYCYCLINE 100 MG CAP PO SCH ×2 (09:34→21:04)
--- NOTE | 2022-11-09 10:47 | P.PN ---
Subjective Progress Note Date: 11/09/22 62-year-old female was seen in the emergency department on November 05, complaining of shortness of breath, and cough. The patient apparently has history of COPD, based on many many years of tobacco use. Also, in the past, because of her respiratory issues, she has had a cardiac arrest twice, most recent time, and January 2022. Currently, she is on 2 L. No IV fluids. She's been smoking for 50 years. She does continue to smoke. 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 She does not see anybody currently. She was admitted with a diagnosis of COPD exacerbation, after seeing the ER physician. White count 11.1, with a normal hemoglobin, hematocrit, and platelet count. Venous blood gases showed a pCO2 of 46, and a pH is 7.36. Chemistry was completely normal including troponin, and N-terminal proBNP. The chest x-ray in my opinion was normal. The radiologist suggested a mild interstitial pattern Progress note dated 11/07/2022. 62-year-old female seen yesterday in consultation. She was admitted with a diagnosis of COPD exacerbation secondary to many years of tobacco use/abuse. Currently, she is on 2 L of oxygen. She's not receiving any IV fluids. She is feeling much better today. No new labs today as yet. No x-ray as yet. She denies any chest pain or chest discomfort. She denies any nausea, vomiting, diarrhea, or abdominal pain. She also denies any genitourinary complaints. Progress note dated 11/08/2022. 62-year-old female seen again in room 637. The patient was admitted with a diagnosis of COPD exacerbation. Currently, the patient's getting a breathing treatment. She's not receiving any IV fluids. She is on 2 L of oxygen. No new labs today. 11/09/2022, seeing the patient for a follow-up. Still having some congested cough. She is still bronchospastic and wheezy. She gives is extensive history of previous cardiac arrest following a viral perforation requiring multiple abdominal surgeries with creation of a colostomy with subsequent reversal. She continues to have a large incisional within the abdominal wall and multiple abdominal wall hernias. No fever. No chills. Pro-calcitonin level has been negative and the patient has also been negative chest x-ray. She remains on bronchodilators. She remains on steroids. Objective - Vital Signs Vital signs: Vital Signs Temp 97.4 F L 11/09/22 07:00 Pulse 90 11/09/22 07:44 Resp 16 11/09/22 07:00 BP 131/81 11/09/22 07:00 Pulse Ox 98 11/09/22 07:25 FiO2 21 11/07/22 20:02 Intake & Output 11/08/22 11/09/22 11/09/22 18:59 06:59 18:59 Intake Total 118 118 Balance 118 118 Intake: Oral 118 118 Other: Voiding Method Toilet Toilet # Voids 3 2 - Exam No acute distress, oriented 3. No respiratory distress. No use of accessory muscles or conversational dyspnea. The patient's on 2 L of oxygen. HEENT examination is grossly unremarkable. The patient had tracheostomy scar which is dry clean and intact Neck supple. Full range of motion. No adenopathy thyromegaly or neck vein di stention. Cardiovascular examination reveals regular rhythm rate. S1-S2 normal. No S3 or S4. No discernible murmur noted. Heart rate 96 bpm. Lungs reveal coarse bilateral inspiratory and expiratory rhonchi, and expiratory wheezes, and bilateral crackles. Breath sounds equal bilaterally. Abdomen soft bowel sounds are heard. No masses or tenderness. Extremities are intact. No cyanosis clubbing or edema. Skin is without rash or lesion. Neurologic examination is brief but nonfocal. - Labs CBC & Chem 7: 11/05/22 18:45 11/05/22 18:45 Assessment and Plan Plan: Acute exacerbation of COPD, without obvious infection. Clinically stable and somewhat improving chronic smoker, 52 years of tobacco use/ongoing tobacco use. History of hypertension. History of myocardial infarction. History of cardiac arrest 2. Previous history of perforated colon, 2010. Previous history of multiple abdominal procedures. The patient has had multiple abdominal surgeries including divesting colostomies and reversals. Currently has a large incision over the abdominal wall along with abdominal wall hernia. Abdominal wall hernia Previous tracheostomy tube insertion and subsequent removal. No stridor for now. Plan: The patient is having ongoing cough and congestion and wheeze. there is a concern of an underlying Continue doxycycline Check nasal swab for MRSA Bronchoscopy is no improvement
--- NOTE | 2022-11-09 15:59 | XR ---
EXAMINATION TYPE: XR chest 1V portable DATE OF EXAM: 11/09/2022 CLINICAL HISTORY: Difficulty breathing progress study. TECHNIQUE: Single AP portable upright view of the chest is obtained. COMPARISON: Chest x-ray from 4 days earlier FINDINGS: Chronic parenchymal changes redemonstrated without suspicious new focal airspace opacity, pleural effusion, or pneumothorax noted. Cardiac silhouette size stable and within normal limits. Oss eous structures are intact. IMPRESSION: Bilateral interstitial changes redemonstrated favoring chronic parenchymal change. No new acute infiltrate.
[2022-11-09] MEDS: HYDROcodone/APAP 10-325MG 1 EACH TAB PO PRN (17:51)
--- NOTE | 2022-11-09 20:14 | P.PN ---
Progress Note - Text Progress Note Date: 11/09/22 Chief Complaint: Short of breath This is a pleasant 62-year-old patient with currently no family doctor. Has a known history of COPD, hypertension, and a perforated bowel for by multiple surgeries, respiratory arrest was ventilator on January 2022. Patient has been chronically short of breath. Recently is progressed to get worse. Now bringing up some sputum. Cough. No fever no chills. Wheezing. Decreased appetite and weight loss tired rundown. November 07: She did improvement. Short of breath. Cough-no phlegm. Some wheezing. Eating some. An initial set up in a chair. Bronchodilators, Solu- Medrol. Doxycycline. Has a chronic abdominal pain. November 08: Remain short of breath wheezing. Cough with no sputum. Continue with bronchodilators I delivered drop. Increase activity. Oral intake fair. November 09: Remains congested. Short of breath. Wheezing. Did discuss with the patient. Might benefit from lavage. Concerns about previous intubation. Discussed with Dr. Gilbert. He will evaluate Active Medications Hydrocodone Bitart/Acetaminophen (Hydrocodone/Apap 10-325mg 1 Each Tab) 1 each PO Q8H PRN PRN Reason: Pain Last Admin: 11/09/22 17:51 Dose: 1 each Albuterol/Ipratropium (Ipratropium-Albuterol 3 Ml Neb) 3 ml INHALATION RT-Q4H [facility] Last Admin: 11/09/22 19:57 Dose: 3 ml Alprazolam (Alprazolam 0.5 Mg Tab) 0.5 mg PO TID PRN PRN Reason: Anxiety Last Admin: 11/06/22 04:58 Dose: 0.5 mg Apixaban (Apixaban 5 Mg Tab) 5 mg PO BID [facility]; Protocol Last Admin: 11/09/22 09:34 Dose: 5 mg Budesonide (Budesonide 1 Mg/2 Ml Nebu) 1 mg INHALATION RT-BID [facility] Last Admin: 11/09/22 19:57 Dose: 1 mg Doxycycline Monohydrate (Doxycycline 100 Mg Cap) 100 mg PO BID [facility]; Protocol Stop: 11/14/22 23:00 Last Admin: 11/09/22 09:34 Dose: 100 mg Formoterol Fumarate (Formoterol Fumarate 20 Mcg/2 Ml Nebu) 20 mcg INHALATION RT-BID [facility] Last Admin: 11/09/22 19:57 Dose: 20 mcg Guaifenesin (Guaifenesin 600 Mg Tablet.Er) 600 mg PO QID [facility] Last Admin: 11/09/22 17:48 Dose: Not Given Hydromorphone HCl (Hydromorphone 0.5 Mg/0.5 Ml Syringe) 0.5 mg IVP Q6HR PRN PRN Reason: Pain Last Admin: 11/09/22 15:13 Dose: 0.5 mg Methylprednisolone Sodium Succinate (Methylprednisolone Sod Succi 125 Mg/2 Ml Vial) 60 mg IV Q6HR [facility] Last Admin: 11/09/22 17:47 Dose: 60 mg Naloxone HCl (Naloxone 0.4 Mg/Ml 1 Ml Vial) 0.2 mg IVP Q2M PRN PRN Reason: Opioid Reversal Nicotine (Nicotine 7mg/24hr Patch) 1 patch TRANSDERM DAILY [facility] Last Admin: 11/09/22 09:31 Dose: Not Given Ondansetron HCl (Ondansetron Odt 8 Mg Tab.Rapdis) 8 mg PO Q8HR PRN PRN Reason: Nausea Last Admin: 11/06/22 09:05 Dose: 8 mg Pantoprazole Sodium (Pantoprazole 40 Mg Tablet) 40 mg PO AC-BRKFST [facility] Last Admin: 11/09/22 06:30 Dose: 40 mg Past medical history to include: COPD, hypertension, respiratory arrest with intubation January 2022, multiple bowel surgeries in 2010 following perforated: Social history: . Does smoke a few cigarettes here and there. Pelvic about less than half a pack a day for 50 years stopped about 10 years ago. Physical examination: VITAL SIGNS: 97.7, 87, 20, 135/75, 94% room air GENERAL: , reclining in bed , short of breath. EYES: Pupils equal. Conjunctiva normal. HEENT: External appearance of nose and ears normal, oral cavity grossly normal. NECK: JVD not raised; masses not palpable. HEART: First and second heart sounds are normal; no edema. LUNGS: Respiratory rate increased, decreased breaths breath sounds, wheezing coarse breath sounds. ABDOMEN: Soft, some tenderness, no guarding rigidity, liver spleen not palpable, no masses palpable. PSYCH: Alert and oriented x3; mood and affect anxious MUSCULOSKELETAL:No Clubbing/cyanosis;muscles-grossly intact. OA INVESTIGATIONS, reviewed in the clinical context: White count 11.1 hemoglobin 13.9 platelets 209 potassium 3.9 creatinine 0.79 Troponin I less than 0.012 proBNP 25 procalcitonin 0.04 EKG tracing personally reviewed by me-normal sinus rhythm Chest x-ray film personally reviewed by me-hyperinflated Assessment and plan: -Acute severe COPD exacerbation in a current smoker: Slow to respond DuoNeb. IV Solu-Medrol 60 mg every 6. Nebulized Perforomist and Pulmicort. -Acute tracheobronchitis: Slow to improve Doxycycline -Chronic nicotine dependence cigarette smoker Nicotine patch -Chronic abdominal pain present multiple surgeries. Juliet pad. Patient does follow up with surgeon at [facility]. -GERD Protonix -Chronic history of DVT and PE Eliquis -Anxiety not otherwise specified Xanax when necessary Continue bronchodilators and Solu-Medrol. Encourage Incentive spirometry. Discussed with Dr. Gilbert the patient. Possibility of lavage. Add flutter valve
[2022-11-10] MEDS: methylPREDNISolone SOD SUCCI 125 MG/2 ML VIAL IV SCH ×5 (00:14→23:52)
[2022-11-10] MEDS: IPRATROPIUM-ALBUTEROL 3 ML NEB INHALATION SCH ×6 (03:43→23:40)
[2022-11-10] MEDS: HYDROmorphone 0.5 MG/0.5 ML SYRINGE IVP PRN ×3 (04:28→22:03)
[2022-11-10] MEDS: PANTOPRAZOLE 40 MG TABLET PO SCH (06:54)
[2022-11-10] MEDS: FORMOTEROL FUMARATE 20 MCG/2 ML NEBU INHALATION SCH ×2 (07:35→20:18)
[2022-11-10] MEDS: BUDESONIDE 1 MG/2 ML NEBU INHALATION SCH ×2 (07:35→20:06)
[2022-11-10] MEDS: HYDROcodone/APAP 10-325MG 1 EACH TAB PO PRN ×2 (08:50→16:50)
[2022-11-10] MEDS: DOXYCYCLINE 100 MG CAP PO SCH ×2 (08:50→22:04)
[2022-11-10] MEDS: APIXABAN 5 MG TAB PO SCH ×2 (08:51→22:04)
[2022-11-10] MEDS: NICOTINE 7MG/24HR PATCH TRANSDERM SCH (08:51)
[2022-11-10] MEDS: guaiFENesin 600 MG TABLET.ER PO SCH ×5 (08:51→22:05)
--- NOTE | 2022-11-10 10:27 | P.PN ---
Subjective Progress Note Date: 11/10/22 62-year-old female was seen in the emergency department on November 05, complaining of shortness of breath, and cough. The patient apparently has history of COPD, based on many many years of tobacco use. Also, in the past, because of her respiratory issues, she has had a cardiac arrest twice, most recent time, and January 2022. Currently, she is on 2 L. No IV fluids. She's been smoking for 50 years. She does continue to smoke. 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 She does not see anybody currently. She was admitted with a diagnosis of COPD exacerbation, after seeing the ER physician. White count 11.1, with a normal hemoglobin, hematocrit, and platelet count. Venous blood gases showed a pCO2 of 46, and a pH is 7.36. Chemistry was completely normal including troponin, and N-terminal proBNP. The chest x-ray in my opinion was normal. The radiologist suggested a mild interstitial pattern Progress note dated 11/07/2022. 62-year-old female seen yesterday in consultation. She was admitted with a diagnosis of COPD exacerbation secondary to many years of tobacco use/abuse. Currently, she is on 2 L of oxygen. She's not receiving any IV fluids. She is feeling much better today. No new labs today as yet. No x-ray as yet. She denies any chest pain or chest discomfort. She denies any nausea, vomiting, diarrhea, or abdominal pain. She also denies any genitourinary complaints. Progress note dated 11/08/2022. 62-year-old female seen again in room 637. The patient was admitted with a diagnosis of COPD exacerbation. Currently, the patient's getting a breathing treatment. She's not receiving any IV fluids. She is on 2 L of oxygen. No new labs today. 11/09/2022, seeing the patient for a follow-up. Still having some congested cough. She is still bronchospastic and wheezy. She gives is extensive history of previous cardiac arrest following a viral perforation requiring multiple abdominal surgeries with creation of a colostomy with subsequent reversal. She continues to have a large incisional within the abdominal wall and multiple abdominal wall hernias. No fever. No chills. Pro-calcitonin level has been negative and the patient has also been negative chest x-ray. She remains on bronchodilators. She remains on steroids. 11/10/2022, the patient is slightly improved and the patient is feeling better compared to yesterday. There is a limited cough. No significant sputum production. The patient's cough is congested. Unable to bring up much of sputum. Chest x-ray was negative. Pro-calcitonin level was low. Remains on examination bronchodilators and steroids. No plans for bronchoscopy special with her extended cardiac history. Objective - Vital Signs Vital signs: Vital Signs Temp 97.8 F 11/10/22 08:00 Pulse 70 11/10/22 08:00 Resp 18 11/10/22 08:00 BP 139/82 11/10/22 08:00 Pulse Ox 95 11/10/22 08:00 FiO2 21 11/10/22 03:43 Intake & Output 11/09/22 11/10/22 11/10/22 18:59 06:59 18:59 Intake Total 236 298 Balance 236 298 Intake: Oral 236 298 Other: Voiding Method Toilet # Voids 1 2 - Exam No acute distress, oriented 3. No respiratory distress. No use of accessory muscles or conversational dyspnea. The patient's on 2 L of oxygen. HEENT examination is grossly unremarkable. The patient had tracheostomy scar which is dry clean and intact Neck supple. Full range of motion. No adenopathy thyromegaly or neck vein distention. Cardiovascular examination reveals regular rhythm rate. S1-S2 normal. No S3 or S4. No discernible murmur noted. Heart rate 96 bpm. Lungs reveal coarse bilateral inspiratory and expiratory rhonchi, and expiratory wheezes, and bilateral crackles. Breath sounds equal bilaterally. Abdomen soft bowel sounds are heard. No masses or tenderness. Extremities are intact. No cyanosis clubbing or edema. Skin is without rash or lesion. Neurologic examination is brief but nonfocal. - Labs CBC & Chem 7: 11/05/22 18:45 11/05/22 18:45 Assessment and Plan Plan: Acute exacerbation of COPD, without obvious infection. Clinically stable and somewhat improving chronic smoker, 52 years of tobacco use/ongoing tobacco use. History of hypertension. History of myocardial infarction. History of cardiac arrest 2. Previous history of perforated colon, 2010. Previous history of multiple abdominal procedures. The patient has had multiple abdominal surgeries including divesting colostomies and reversals. Currently has a large incision over the abdominal wall along with abdominal wall hernia. Abdominal wall hernia Previous tracheostomy tube insertion and subsequent removal. No stridor for now. Plan: Continue same treatment Clinically improving The patient is having ongoing cough and congestion and wheeze. Slightly improved compared to yesterday Continue doxycycline Check nasal swab for MRSA No need for bronchoscopy at this point in time
--- NOTE | 2022-11-10 21:25 | P.PN ---
Progress Note - Text Progress Note Date: 11/10/22 Chief Complaint: Short of breath This is a pleasant 62-year-old patient with currently no family doctor. Has a known history of COPD, hypertension, and a perforated bowel for by multiple surgeries, respiratory arrest was ventilator on January 2022. Patient has been chronically short of breath. Recently is progressed to get worse. Now bringing up some sputum. Cough. No fever no chills. Wheezing. Decreased appetite and weight loss tired rundown. November 07: She did improvement. Short of breath. Cough-no phlegm. Some wheezing. Eating some. An initial set up in a chair. Bronchodilators, Solu- Medrol. Doxycycline. Has a chronic abdominal pain. November 08: Remain short of breath wheezing. Cough with no sputum. Continue with bronchodilators I delivered drop. Increase activity. Oral intake fair. November 09: Remains congested. Short of breath. Wheezing. Did discuss with the patient. Might benefit from lavage. Concerns about previous intubation. Discussed with Dr. Gilbert. He will evaluate November 10: Remain short of breath congested short of breath and wheezing. Using incentive spirometry. Continue with IV Solu-Medrol, DuoNeb. Flutter valve ordered yesterday. No bronchoscopy per pulmonary and this point. Active Medications Hydrocodone Bitart/Acetaminophen (Hydrocodone/Apap 10-325mg 1 Each Tab) 1 each PO Q8H PRN PRN Reason: Pain Last Admin: 11/10/22 16:50 Dose: 1 each Albuterol/Ipratropium (Ipratropium-Albuterol 3 Ml Neb) 3 ml INHALATION RT-Q4H [facility] Last Admin: 11/10/22 20:06 Dose: 3 ml Alprazolam (Alprazolam 0.5 Mg Tab) 0.5 mg PO TID PRN PRN Reason: Anxiety Last Admin: 11/06/22 04:58 Dose: 0.5 mg Apixaban (Apixaban 5 Mg Tab) 5 mg PO BID [facility]; Protocol Last Admin: 11/10/22 08:51 Dose: 5 mg Budesonide (Budesonide 1 Mg/2 Ml Nebu) 1 mg INHALATION RT-BID [facility] Last Admin: 11/10/22 20:06 Dose: 1 mg Doxycycline Monohydrate (Doxycycline 100 Mg Cap) 100 mg PO BID [facility]; Protocol Stop: 11/14/22 23:00 Last Admin: 11/10/22 08:50 Dose: 100 mg Formoterol Fumarate (Formoterol Fumarate 20 Mcg/2 Ml Nebu) 20 mcg INHALATION RT-BID [facility] Last Admin: 11/10/22 20:18 Dose: 20 mcg Guaifenesin (Guaifenesin 600 Mg Tablet.Er) 600 mg PO QID [facility] Last Admin: 11/10/22 16:50 Dose: Not Given Hydromorphone HCl (Hydromorphone 0.5 Mg/0.5 Ml Syringe) 0.5 mg IVP Q6HR PRN PRN Reason: Pain Last Admin: 11/10/22 13:45 Dose: 0.5 mg Methylprednisolone Sodium Succinate (Methylprednisolone Sod Succi 125 Mg/2 Ml Vial) 60 mg IV Q6HR [facility] Last Admin: 11/10/22 18:33 Dose: 60 mg Naloxone HCl (Naloxone 0.4 Mg/Ml 1 Ml Vial) 0.2 mg IVP Q2M PRN PRN Reason: Opioid Reversal Nicotine (Nicotine 7mg/24hr Patch) 1 patch TRANSDERM DAILY [facility] Last Admin: 11/10/22 08:51 Dose: Not Given Ondansetron HCl (Ondansetron Odt 8 Mg Tab.Rapdis) 8 mg PO Q8HR PRN PRN Reason: Nausea Last Admin: 11/06/22 09:05 Dose: 8 mg Pantoprazole Sodium (Pantoprazole 40 Mg Tablet) 40 mg PO AC-BRKFST [facility] Last Admin: 11/10/22 06:54 Dose: 40 mg Past medical history to include: COPD, hypertension, respiratory arrest with intubation January 2022, multiple bowel surgeries in 2010 following perforated: Social history: . Does smoke a few cigarettes here and there. Pelvic about less than half a pack a day for 50 years stopped about 10 years ago. Physical examination: VITAL SIGNS: 97.5, 80, 18, 132/73, 95% room air GENERAL: , Up in a chair, short of breath. EYES: Pupils equal. Conjunctiva normal. HEENT: External appearance of nose and ears normal, oral cavity grossly normal. NECK: JVD not raised; masses not palpable. HEART: First and second heart sounds are normal; no edema. LUNGS: Respiratory rate increased, decreased breaths breath sounds, wheezing coarse breath sounds. ABDOMEN: Soft, some tenderness, no guarding rigidity, liver spleen not palpable, no masses palpable. PSYCH: Alert and oriented x3; mood and affect anxious MUSCULOSKELETAL:No Clubbing/cyanosis;muscles-grossly intact. OA INVESTIGATIONS, reviewed in the clinical context: White count 11.1 hemoglobin 13.9 platelets 209 potassium 3.9 creatinine 0.79 Troponin I less than 0.012 proBNP 25 procalcitonin 0.04 EKG tracing personally reviewed by me-normal sinus rhythm Chest x-ray film personally reviewed by me-hyperinflated Assessment and plan: -Acute severe COPD exacerbation in a current smoker: Slow to respond DuoNeb. IV Solu-Medrol 60 mg every 6. Nebulized Perforomist and Pulmicort. -Acute tracheobronchitis: Slow to improve Doxycycline -Chronic nicotine dependence cigarette smoker Nicotine patch -Chronic abdominal pain present multiple surgeries. Juliet capellan. Patient does follow up with surgeon at [facility]. -GERD Protonix -Chronic history of DVT and PE Eliquis -Anxiety not otherwise specified Xanax when necessary bronchodilators and Solu-Medrol. Incentive spirometry. Discussed with patient
[2022-11-11 03:22] VITALS: RESP 18
[2022-11-11] MEDS: IPRATROPIUM-ALBUTEROL 3 ML NEB INHALATION SCH ×2 (03:38→08:44)
[2022-11-11] MEDS: HYDROmorphone 0.5 MG/0.5 ML SYRINGE IVP PRN (05:34)
[2022-11-11] MEDS: methylPREDNISolone SOD SUCCI 125 MG/2 ML VIAL IV SCH ×2 (05:35→11:21)
[2022-11-11] MEDS: PANTOPRAZOLE 40 MG TABLET PO SCH (05:35)
[2022-11-11 07:33] VITALS: BP 134/77; TEMP 97.9
[2022-11-11] MEDS: NICOTINE 7MG/24HR PATCH TRANSDERM SCH (07:41)
[2022-11-11] MEDS: guaiFENesin 600 MG TABLET.ER PO SCH ×2 (07:41→11:19)
[2022-11-11] MEDS: DOXYCYCLINE 100 MG CAP PO SCH (07:43)
[2022-11-11] MEDS: APIXABAN 5 MG TAB PO SCH (07:44)
[2022-11-11] MEDS: HYDROcodone/APAP 10-325MG 1 EACH TAB PO PRN (07:48)
[2022-11-11] MEDS: BUDESONIDE 1 MG/2 ML NEBU INHALATION SCH (08:44)
[2022-11-11] MEDS: FORMOTEROL FUMARATE 20 MCG/2 ML NEBU INHALATION SCH (08:44)
[2022-11-11 09:23] VITALS: PULSE 95
[2022-11-11] MEDS ORDERED: FLUCONAZOLE 100 MG TAB PO ONE (11:00)
--- NOTE | 2022-11-11 11:31 | P.PN ---
Subjective Progress Note Date: 11/11/22 62-year-old female was seen in the emergency department on November 05, complaining of shortness of breath, and cough. The patient apparently has history of COPD, based on many many years of tobacco use. Also, in the past, because of her respiratory issues, she has had a cardiac arrest twice, most recent time, and January 2022. Currently, she is on 2 L. No IV fluids. She's been smoking for 50 years. She does continue to smoke. 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 She does not see anybody currently. She was admitted with a diagnosis of COPD exacerbation, after seeing the ER physician. White count 11.1, with a normal hemoglobin, hematocrit, and platelet count. Venous blood gases showed a pCO2 of 46, and a pH is 7.36. Chemistry was completely normal including troponin, and N-terminal proBNP. The chest x-ray in my opinion was normal. The radiologist suggested a mild interstitial pattern Progress note dated 11/07/2022. 62-year-old female seen yesterday in consultation. She was admitted with a diagnosis of COPD exacerbation secondary to many years of tobacco use/abuse. Currently, she is on 2 L of oxygen. She's not receiving any IV fluids. She is feeling much better today. No new labs today as yet. No x-ray as yet. She denies any chest pain or chest discomfort. She denies any nausea, vomiting, diarrhea, or abdominal pain. She also denies any genitourinary complaints. Progress note dated 11/08/2022. 62-year-old female seen again in room 637. The patient was admitted with a diagnosis of COPD exacerbation. Currently, the patient's getting a breathing treatment. She's not receiving any IV fluids. She is on 2 L of oxygen. No new labs today. 11/09/2022, seeing the patient for a follow-up. Still having some congested cough. She is still bronchospastic and wheezy. She gives is extensive history of previous cardiac arrest following a viral perforation requiring multiple abdominal surgeries with creation of a colostomy with subsequent reversal. She continues to have a large incisional within the abdominal wall and multiple abdominal wall hernias. No fever. No chills. Pro-calcitonin level has been negative and the patient has also been negative chest x-ray. She remains on bronchodilators. She remains on steroids. 11/10/2022, the patient is slightly improved and the patient is feeling better compared to yesterday. There is a limited cough. No significant sputum production. The patient's cough is congested. Unable to bring up much of sputum. Chest x-ray was negative. Pro-calcitonin level was low. Remains on examination bronchodilators and steroids. No plans for bronchoscopy special with her extended cardiac history.3 2022, the patient is feeling well. No significant complaints. Still having some congested cough. Still having some ongoing wheeze. No fever. No chills. No other complaints otherwise. Objective - Vital Signs Vital signs: Vital Signs Temp 97.9 F 11/11/22 07:32 Pulse 95 11/11/22 09:21 Resp 18 11/11/22 07:32 BP 134/77 11/11/22 07:32 Pulse Ox 93 L 11/11/22 08:44 FiO2 21 11/10/22 03:43 Intake & Output 11/10/22 11/11/22 11/11/22 18:59 06:59 18:59 Intake Total 520 240 Balance 520 240 Intake: Oral 520 240 Other: Voiding Method Toilet Toilet # Voids 2 2 - Exam No acute distress, oriented 3. No respiratory distress. No use of accessory muscles or conversational dyspnea. The patient's on 2 L of oxygen. HEENT examination is grossly unremarkable. The patient had tracheostomy scar which is dry clean and intact Neck supple. Full range of motion. No adenopathy thyromegaly or neck vein distention. Cardiovascular examination reveals regular rhythm rate. S1-S2 normal. No S3 or S4. No discernible murmur noted. Heart rate 96 bpm. Lungs reveal coarse bilateral inspiratory and expiratory rhonchi, and expiratory wheezes, and bilateral crackles. Breath sounds equal bilaterally. Abdomen soft bowel sounds are heard. No masses or tenderness. Extremities are intact. No cyanosis clubbing or edema. Skin is without rash or lesion. Neurologic examination is brief but nonfocal. - Labs CBC & Chem 7: 11/05/22 18:45 11/05/22 18:45 Assessment and Plan Plan: Acute exacerbation of COPD, without obvious infection. Clinically stable and somewhat improving chronic smoker, 52 years of tobacco use/ongoing tobacco use. History of hypertension. History of myocardial infarction. History of cardiac arrest 2. Previous history of perforated colon, 2010. Previous history of multiple abdominal procedures. The patient has had multiple abdominal surgeries including divesting colostomies and reversals. Currently has a large incision over the abdominal wall along with abdominal wall hernia. Abdominal wall hernia Previous tracheostomy tube insertion and subsequent removal. No stridor for now. Plan: Discussed the case with Dr. Otto Discharge the patient home on Symbicort and Incruse Albuterol nebulized treatments 4 times a day Prednisone burst taper starting with 40 mg Mucinex DM for cough and congestion Flutter valve Outpatient follow-up
--- NOTE | 2022-11-11 23:24 | P.DS ---
Providers Date of admission: 11/09/22 14:09 Expected date of discharge: 11/11/22 Attending physician: Hernandez Otto Consults: 11/05/22 20:56 Consult Physician Routine Consulting Provider: Ken Charles Consult Reason/Comments: copd Do you want consulting provider notified?: Yes Primary care physician: Physician Nonstaff Hospital Course: Chief Complaint: Short of breath This is a pleasant 62-year-old patient with currently no family doctor. Has a known history of COPD, hypertension, and a perforated bowel for by multiple surgeries, respiratory arrest was ventilator on January 2022. Patient has been chronically short of breath. Recently is progressed to get worse. Now bringing up some sputum. Cough. No fever no chills. Wheezing. Decreased appetite and weight loss tired rundown. November 07: She did improvement. Short of breath. Cough-no phlegm. Some wheezing. Eating some. An initial set up in a chair. Bronchodilators, Solu-Medrol. Doxycycline. Has a chronic abdominal pain. November 08: Remain short of breath wheezing. Cough with no sputum. Continue with bronchodilators I delivered drop. Increase activity. Oral intake fair. November 09: Remains congested. Short of breath. Wheezing. Did discuss with the patient. Might benefit from lavage. Concerns about previous intubation. Discussed with Dr. Gilbert. He will evaluate November 10: Remain short of breath congested short of breath and wheezing. Using incentive spirometry. Continue with IV Solu-Medrol, DuoNeb. Flutter valve ordered yesterday. No bronchoscopy per pulmonary and this point. November 11: Doing better. Discussed with patient Dr. Gilbert. Patient to resume increase in Lipitor. Symbicort. Prednisone taper. Flutter valve. Mucinex. Will follow up with Dr. Charles. Questions answered. Discussion and discharge planning more than 35 minutes Past medical history to include: COPD, hypertension, respiratory arrest with intubation January 2022, multiple bowel surgeries in 2010 following perforated: Social history: . Does smoke a few cigarettes here and there. Pelvic about less than half a pack a day for 50 years stopped about 10 years ago. Physical examination: VITAL SIGNS: 97.9, 66, 18, 1:30/77, 96% room air GENERAL: , Up in a chair, breathing better. EYES: Pupils equal. Conjunctiva normal. HEENT: External appearance of nose and ears normal, oral cavity grossly normal. NECK: JVD not raised; masses not palpable. HEART: First and second heart sounds are normal; no edema. LUNGS: Respiratory rate increased, decreased breaths breath sounds, wheezing coarse breath sounds. ABDOMEN: Soft, some tenderness, no guarding rigidity, liver spleen not palpable, no masses palpable. PSYCH: Alert and oriented x3; mood and affect anxious MUSCULOSKELETAL:No Clubbing/cyanosis;muscles-grossly intact. OA INVESTIGATIONS, reviewed in the clinical context: White count 11.1 hemoglobin 13.9 platelets 209 potassium 3.9 creatinine 0.79 Troponin I less than 0.012 proBNP 25 procalcitonin 0.04 EKG tracing personally reviewed by me-normal sinus rhythm Chest x-ray film personally reviewed by me-hyperinflated Assessment and plan: -Acute severe COPD exacerbation in a current smoker: DuoNeb. IV Solu-Medrol 60 mg every 6. Nebulized Perforomist and Pulmicort. Discharged on: Prednisone taper, incruse ellipta, Symbicort 160 , flutter valve -Acute tracheobronchitis: Doxycycline -Chronic nicotine dependence cigarette smoker Nicotine patch -Chronic abdominal pain present multiple surgeries. Juliet capellan. Patient does follow up with surgeon at [facility]. -GERD Protonix -Chronic history of DVT and PE Eliquis -Anxiety not otherwise specified Xanax when necessary Disposition: Home Plan - Discharge Summary New Discharge Prescriptions: New Nicotine 7Mg/24Hr Patch [Habitrol] 1 patch TRANSDERM DAILY #14 patch Umeclidinium Tiffin [Incruse Ellipta] 1 puff INHALATION BID #1 each Fluconazole [Diflucan] 100 mg PO DAILY #10 tab guaiFENesin [Mucinex] 600 mg PO QID #100 tab predniSONE 10 mg PO DAILY #30 tab Budesonide/Formoterol Fumarate [Symbicort 160-4.5 Mcg Inhaler] 1 puff INHALATION BID #10.2 gm Continue HYDROcodone/APAP 10-325MG [Waldron 10-325] 1 tab PO BID PRN PRN Reason: Pain Apixaban [Eliquis] 5 mg PO BID Ipratropium-Albuterol Nebulize [Duoneb 0.5 mg-3 mg/3 ml Soln] 3 ml INHALATION RT-QID Budesonide [Pulmicort] 0.5 mg INHALATION RT-BID Pantoprazole [Protonix] 40 mg PO DAILY Albuterol Sulfate [Ventolin HFA] 2 puff INHALATION RT-QID PRN PRN Reason: Shortness Of Breath Ondansetron Odt [Zofran ODT] 8 mg PO Q8HR PRN PRN Reason: Nausea ALPRAZolam [Xanax] 0.5 mg PO TID PRN PRN Reason: Anxiety Discontinued predniSONE 50 mg PO DAILY Doxycycline [Vibramycin] 100 mg PO BID Discharge Medication List ALPRAZolam [Xanax] 0.5 mg PO TID PRN 11/05/22 [History] Albuterol Sulfate [Ventolin HFA] 2 puff INHALATION RT-QID PRN 11/05/22 [History] Apixaban [Eliquis] 5 mg PO BID 11/05/22 [History] Budesonide [Pulmicort] 0.5 mg INHALATION RT-BID 11/05/22 [History] HYDROcodone/APAP 10-325MG [Waldron 10-325] 1 tab PO BID PRN 11/05/22 [History] Ipratropium-Albuterol Nebulize [Duoneb 0.5 mg-3 mg/3 ml Soln] 3 ml INHALATION RT-QID 11/05/22 [History] Ondansetron Odt [Zofran ODT] 8 mg PO Q8HR PRN 11/05/22 [History] Pantoprazole [Protonix] 40 mg PO DAILY 11/05/22 [History] Budesonide/Formoterol Fumarate [Symbicort 160-4.5 Mcg Inhaler] 1 puff INHALATION BID #10.2 gm 11/11/22 [Rx] Fluconazole [Diflucan] 100 mg PO DAILY #10 tab 11/11/22 [Rx] Nicotine 7Mg/24Hr Patch [Habitrol] 1 patch TRANSDERM DAILY #14 patch 11/11/22 [Rx] Umeclidinium Tiffin [Incruse Ellipta] 1 puff INHALATION BID #1 each 11/11/22 [Rx] guaiFENesin [Mucinex] 600 mg PO QID #100 tab 11/11/22 [Rx] predniSONE 10 mg PO DAILY #30 tab 11/11/22 [Rx] Follow up Appointment(s)/Referral(s): Basha,Ken, DO [Doctor of Osteopathic Medicine] - 1 Week Nonstaff,Physician [Primary Care Provider] - 1-2 days Activity/Diet/Wound Care/Special Instructions: [facility] Primary Care Physicians Justin Reeves MD Specialty:Family Medicine [address] [place] [address] Cinda Moses NP Specialty:Family Medicine [address] [place] [address] Anne Marie Boyd NP Specialty:Family Medicine Nurse Practitioner [address] [place] [address] Chanel Delaney [facility] Specialty:Family Medicine [address] [place] [address] Dusty Fan MD Specialty: Internal Medicine [address] [facility], [address] [place] [address] Dom Trinidad DO Specialty:Adult Causticiser [address] [address] Volodymyr Saini MD Specialty: Internal Medicine [address] [place] [address] Mara Mireles Specialty:Family Medicine [address] [place] [address] Marcial Brown MD Specialty:Family Medicine [address] [place] [address] Denis Tony MD Specialty: Internal Medicine [address] [place] [address] Zulema Thomas MD Specialty:Family Medicine [address] [place] [address] Jhonny Ferro DO Specialty:Family Medicine [address] [facility], [address] [place] [address] Eulogio Up MD, [facility] Specialty: Family Medicine [address] [facility], [address] [place] [address] David Acosta MD Specialty:Family Medicine [address] [facility], [address] [place] [address] Vijay David DO Specialty: Family Medicine [address] [place] [address] Nick Saleem MD Specialty:Family Medicine [address] [place] [address] Miguelangel Gilliam MD Specialty: Internal Medicine [address] [place] [address] Delores Drummond DO Specialty:Family Medicine [address] [place] [address] Soniya Chinchilla CUSTOMER ENGAGEMENT SPECIALIST-BC Specialty: Internal Medicine [address] [place] [address] Isa Nunez MD Specialty: Internal Medicine, Pediatrics [address] [place] [address] Prashant Guerra MD Specialty:Family Medicine [address] [place] [address] Igor Welsh MD FACP Specialty: Internal Medicine 2425 [facility] [place] [address] Marcial Hurd DO Specialty: Family Medicine [address] [place] [address] Phoenix Mohan MD Specialty:Family Medicine [address] [facility], [place] [address] Olivia Dixon MD Specialty: Internal Medicine 1201 [facility], [address] [place] [address] Brianne De Los Santos CUSTOMER ENGAGEMENT SPECIALIST-BC Specialty:Nurse Practitioner [address] [place] [address] Elana Nix NP Specialty:Family Medicine Nurse Practitioner [address] [place] [address] Rita Reynolds PA-C Specialty:Family Medicine [address] [place] [address] Michael, Steven DO Specialty:Family Medicine 5312 [facility] [address] Nick Melgar MD Specialty: Internal Medicine [address] [place] [address] Imelda Hale CUSTOMER ENGAGEMENT SPECIALIST-C [facility] Provider Specialty: Family Medicine [address] [place] [address] Emmy Chen MD Specialty: Internal Medicine [address] [place] [address] Ti Young [facility] Provider Specialty: Family Medicine [address] [place] [address] Vivi Phillips NP Specialty: Family Medicine Nurse Practitioner [address] [place] [address] Kayla John MD Specialty: Family Medicine [address] [place] [address] Libby Rand MD Specialty:Family Medicine [address] [place] [address] Imelda Jordan MD [facility] Provider Specialty:Family Medicine [address] [place] [address] [facility]- Specialty: Internal Medicine Nurse Practitioner [address] [place] [address] Naresh Canas DO Specialty: Family Medicine [address] [place] [address] Mic Briggs DO Specialty:Family Medicine [address] [place] [address] Chanel Cummins DO Specialty: Family Medicine [address] [place] [address] Nick Agarwal MD Specialty:Family Medicine 1117 [facility], [address] [place] [address] Ceferino Gross MD Specialty:Family Medicine [address] [place] [address] Graham Peguero MD Specialty:Family Medicine [address] [place] [address] Faye Yates DO Specialty: Family Medicine [address] [place] [address] Ken Samayoa MD Specialty:Family Medicine [address] [place] [address] Logan Allyson DO Specialty:Family Medicine 24[address] [facility], [address] [place] [address] Mendez Trinidad MD Specialty:Family Medicine Sub-Specialty:Gerontology, Sports Medicine [address] [place] [address] Aileen Benavidez NP Specialty:Family Medicine 24[address] [facility], [address] [place] [address] Homero Noriega MD Specialty: Family Medicine [address] [place] [address] Ayah Noriega DO Specialty:Family Medicine Sub-Specialty:Vasectomies, Laser [address] [place] [address] Esmer Givens DO Specialty: Family Medicine [address] [place] [address] Josy Bey SENIOR HEALTH CONSULTANT-C Specialty: Family Medicine [facility] [address] [place] [address] Denis Orta DO Specialty:Family Medicine Sub-Specialty:Pediatrics, Sports Medicine, Women's Medicine, Cryotherapy, Simple Surgeries, Synvisc Injections [address] [place] [address] Kevin Pavon DO Specialty:Family Medicine Sub-Specialty:Geriatrics [address] [place] [address] Obed Wiley Specialty:Family Medicine [address] [place] [address] Josy Simpson PA-C [address] [place] [address] Oziel Riley DO Specialty: Family Medicine [address] [place] [address] Daljit Gipson MD Specialty:Family Medicine Sub-Specialty:Wound Care, Family Care [address] [facility], [address] [place] [address] Sherita Martines MD Specialty:Family Medicine [address] [place] [address] Deb Glass MD Specialty:Family Medicine [address] [place] [address] [facility] 30[address] [facility], [address] [place] [address] Dom Ross DO [facility] Provider Specialty: Internal Medicine [address] [place] [address] Socorro Mcfarland Specialty:Family Medicine [address] [place] [address] [place] [address] Discharge/Stand Alone Forms: Who Do I Call?, Community Resources Discharge Disposition: HOME SELF-CARE
== END 2022-11-11 11:45 | disposition home or self-care (01) | DRG 192 ==
LOC: EC 17:47 → 6NMEDSUR 20:55 → OBSVTOIN 11-09 14:09
PROVIDERS: ADMIT Hospitalist; ATTEND Hospitalist
DX: J44.0 Chronic obstructive pulmonary disease with (acute) lower respiratory infection (principal); J44.1 Chronic obstructive pulmonary disease with (acute) exacerbation; Z86.74 Personal history of sudden cardiac arrest; F17.210 Nicotine dependence, cigarettes, uncomplicated; J20.9 Acute bronchitis, unspecified; Z28.310 Unvaccinated for COVID-19; I10 Essential (primary) hypertension; I25.2 Old myocardial infarction; K21.9 Gastro-esophageal reflux disease without esophagitis; G89.29 Other chronic pain; K43.9 Ventral hernia without obstruction or gangrene; R10.9 Unspecified abdominal pain; Z71.6 Tobacco abuse counseling; F41.9 Anxiety disorder, unspecified; Z79.01 Long term (current) use of anticoagulants; Z79.51 Long term (current) use of inhaled steroids; Z79.52 Long term (current) use of systemic steroids; Z79.899 Other long term (current) drug therapy; Z86.14 Personal history of Methicillin resistant Staphylococcus aureus infection; Z86.711 Personal history of pulmonary embolism; Z86.718 Personal history of other venous thrombosis and embolism; Z88.0 Allergy status to penicillin; Z88.8 Allergy status to other drugs, medicaments and biological substances; Z88.1 Allergy status to other antibiotic agents; Z91.041 Radiographic dye allergy status
CPT/HCPCS: 36415; 71045; 71046; 80048; 82803; 83880; 84145; 84484; 85025; 93005; 94640; 94644; 94667; 94760; 96374; 96375; 99285